=== PATIENT | female | born 1985 ===

== ENCOUNTER 2022-12-12 15:42 | Inpatient (IN) | payer OTHER ==
[~2022-12-12] VITALS: Ht 162.6 cm; Wt 0.5 kg
[2022-12-13] MEDS ORDERED: PROTONIX40 MG PO (12:09)
[2022-12-13] MEDS ORDERED: PROPRANOLOL HCL10 MG PO (12:09)
[2022-12-13] MEDS ORDERED: PEPCID40 MG PO (12:10)
== END 2022-12-22 09:24 | disposition home or self-care (01) | DRG 328 ==
LOC: EDSTATUS 12-13 11:45 → ADM 12-13 11:45 → SURG 12-18 11:45 → O/R 12-20 07:19 → SURG 12-20 11:45
PROVIDERS: ADMIT Surgery; ATTEND Surgery
PROC: 8E0W0CZ Robotic Assisted Procedure of Trunk Region, Open Approach (ICD-10-PCS; 2022-12-20)
PROC: 0D844ZZ Division of Esophagogastric Junction, Percutaneous Endoscopic Approach (ICD-10-PCS; principal; 2022-12-20 07:00)
DX: K22.0 Achalasia of cardia (principal); Z20.822 Contact with and (suspected) exposure to COVID-19
CPT/HCPCS: 43279; S2900